=== PATIENT | male | born 1930 | race Caucasian/White ===

== ENCOUNTER 2018-02-01 18:01 | Inpatient (IN) | payer OTHER ==
[2018-02-01] MEDS: SOD CHLORIDE 0.9% 500 ML IV (18:27)
[2018-02-01 19:10] LABS: ADD MAN DIFF? NO
[2018-02-01 19:37] LABS: ANION GAP 17 (8-16); BLOOD UREA NITROGEN 72 mg/dl (7-20); CALCIUM 8.7 mg/dl (8.4-10.2); CARBON DIOXIDE 22 mmol/L (21-31); CHLORIDE 101 mmol/L (97-110); GLUCOSE 222 mg/dl (70-220); POTASSIUM 4.8 mmol/L (3.5-5.1); SODIUM 135 mmol/L (135-144)
[2018-02-01 19:42] LABS: INR 1.07; PT RATIO 1.1
[2018-02-01 19:46] LABS: TROPONIN-I 0.014 ng/ml (0.00-0.12)
[2018-02-01 20:06] LABS: BASOPHIL # 0.1 10^3/ul (0.0-0.1); BASOPHILS % 0.3 % (0.0-2.0); EOSINOPHILS # 0.1 10^3/ul (0.0-0.5); EOSINOPHILS % 0.3 % (0.0-7.0); HEMATOCRIT 28.6 % (42.0-52.0); LYMPHOCYTES # 0.8 10^3/ul (0.8-2.9); LYMPHOCYTES % 4.5 % (15.0-51.0); MEAN CORPUSCULAR HGB CONC 31.5 g/dl (32.0-37.0); MEAN CORPUSCULAR VOLUME 85.9 fl (82.0-101.0); MEAN PLATELET VOLUME 11.7 fl (7.4-10.4); MONOCYTE # 1.1 10^3/ul (0.3-0.9); MONOCYTES % 5.8 % (0.0-11.0); NEUTROPHIL # 15.7 10^3/ul (1.6-7.5); PLATELET COUNT 225 10^3/UL (140-415); RED BLOOD COUNT 3.33 10^6/ul (4.70-6.10)
[2018-02-01 20:06] LABS: WHITE BLOOD COUNT 18.3 10^3/ul (4.8-10.8)
[2018-02-01] MEDS: SOD CHLORIDE 0.9% 1,000 ML IV (20:41)
[2018-02-01 20:45] LABS: FREE T4 (FREE THYROXINE) 1.77 ng/dl (0.85-1.93)
[2018-02-01] MEDS: CEFEPIME 1GM/50 ML (PMX) 50 ML IVPB (21:02)
[2018-02-01 21:37] LABS: LACTIC ACID 2.9 mmol/L (0.5-2.0)
[2018-02-01] MEDS: VANCOMYCIN 1 GM (PMX) 250 ML IVPB (21:44)
[2018-02-01] MEDS: SODIUM CHLORIDE 0.9% 1L BAG IV* (21:45)
[2018-02-01 22:39] LABS: ADD UMIC YES; UR ASCORBIC ACID NEGATIVE (NEGATIVE); UR BILIRUBIN (Dip) NEGATIVE (NEGATIVE); UR BLOOD (Dip) NEGATIVE (NEGATIVE); UR CLARITY CLEAR (CLEAR); UR COLOR YELLOW (YELLOW); UR GLUCOSE (Dip) NEGATIVE (NEGATIVE); UR KETONES (Dip) NEGATIVE (NEGATIVE); UR LEUKOCYTE ESTERASE (Dip) TRACE Leu/ul (NEGATIVE); UR NITRITE (Dip) NEGATIVE (NEGATIVE); UR RBC 1 /HPF (0-5); UR TOTAL PROTEIN (Dip) NEGATIVE (NEGATIVE); UR UROBILINOGEN (Dip) NEGATIVE (NEGATIVE); UR WBC 1 /HPF (0-5)
[2018-02-01] MEDS ORDERED: ACETAMINOPHEN 325 MG TAB PO ×2 (23:00→23:30)
[2018-02-01] MEDS ORDERED: ONDANSETRON 4 MG INJ IV ×2 (23:00→23:30)
[2018-02-01] MEDS ORDERED: DEXTROSE 50% 50 ML SYRINGE IV ×2 (23:30)
[2018-02-01] MEDS ORDERED: morphine 2 MG INJ IV (23:30)
[2018-02-01] MEDS ORDERED: GLUCAGON 1 MG INJ IM (23:30)
[2018-02-01] MEDS ORDERED: GLUCOSE GEL 15 GRAM TUBE BUCCAL (23:30)
[2018-02-01] MEDS ORDERED: GLUCOSE GEL 15 GRAM TUBE PO ×2 (23:30)
[2018-02-01 23:31] LABS: ALANINE AMINOTRANSFERASE 39 IU/L (13-69); ALBUMIN 2.4 g/dl (3.3-4.9); ALKALINE PHOSPHATASE 70 IU/L (42-121); ASPARTATE AMINO TRANSFERASE 49 IU/L (15-46); BILIRUBIN,INDIRECT 0.2 mg/dl (0-1.1); BILIRUBIN,TOTAL 0.2 mg/dl (0.2-1.3); TOTAL PROTEIN 5.1 g/dl (6.1-8.1)
[2018-02-01 23:45] LABS: LACTIC ACID 2.9 mmol/L (0.5-2.0)
[2018-02-02] MEDS ORDERED: PIPER-TAZO 3.375 GM IV (PMX) 100 ML IVPB (01:00)
[2018-02-02] MEDS: ALBUTEROL/IPRATROPIUM (NEB) 3 ML AMP HHN ×4 (02:40→22:33)
[2018-02-02] MEDS: PIPER-TAZO 2.25 GM (PMX) 50 ML IVPB ×3 (03:37→22:25)
[2018-02-02 03:47] LABS: LACTIC ACID 1.8 mmol/L (0.5-2.0)
[2018-02-02] MEDS ORDERED: VANCOMYCIN IV PER PHARMACY XX (04:00)
[2018-02-02 04:24] LABS: RETICULOCYTE RBC 3.36
[2018-02-02 04:24] LABS: RETICULOCYTE COUNT # 0.046 X10^6 (0.020-0.110); RETICULOCYTE COUNT % 1.4 % (0.5-1.5)
[2018-02-02 06:09] LABS: ADD MAN DIFF? NO
[2018-02-02 06:20] LABS: BASOPHILS % 0.2 % (0.0-2.0); HEMATOCRIT 27.4 % (42.0-52.0); HEMOGLOBIN 8.5 g/dl (14.0-18.0); LYMPHOCYTES # 0.6 10^3/ul (0.8-2.9); LYMPHOCYTES % 3.1 % (15.0-51.0); MEAN CORPUSCULAR HEMOGLOBIN 26.9 pg (29.0-33.0); MEAN CORPUSCULAR VOLUME 86.7 fl (82.0-101.0); MEAN PLATELET VOLUME 12.1 fl (7.4-10.4); MONOCYTE # 1.3 10^3/ul (0.3-0.9); MONOCYTES % 6.4 % (0.0-11.0); NEUTROPHIL # 17.6 10^3/ul (1.6-7.5); NEUTROPHILS % 89.1 % (39.0-77.0); PLATELET COUNT 212 10^3/UL (140-415); RED BLOOD COUNT 3.16 10^6/ul (4.70-6.10); RED CELL DISTRIBUTION WIDTH 15.1 % (11.5-14.5)
[2018-02-02 06:20] LABS: WHITE BLOOD COUNT 19.7 10^3/ul (4.8-10.8)
[2018-02-02 06:48] LABS: ALANINE AMINOTRANSFERASE 51 IU/L (13-69); ALBUMIN 2.9 g/dl (3.3-4.9); ALBUMIN/GLOBULIN RATIO 1.16; ALKALINE PHOSPHATASE 94 IU/L (42-121); ANION GAP 14 (8-16); ASPARTATE AMINO TRANSFERASE 42 IU/L (15-46); BILIRUBIN,INDIRECT 0.2 mg/dl (0-1.1); BILIRUBIN,TOTAL 0.2 mg/dl (0.2-1.3); BLOOD UREA NITROGEN 80 mg/dl (7-20); CALCIUM 8.3 mg/dl (8.4-10.2); CARBON DIOXIDE 22 mmol/L (21-31); CHLORIDE 110 mmol/L (97-110); CREATININE 1.99 mg/dl (0.61-1.24); GLUCOSE 255 mg/dl (70-220); POTASSIUM 4.7 mmol/L (3.5-5.1); SODIUM 141 mmol/L (135-144); TOTAL PROTEIN 5.4 g/dl (6.1-8.1)
[2018-02-02 06:51] LABS: IRON 27 ug/dl (35-150)
[2018-02-02 07:00] LABS: % IRON SATURATION 11 % SAT (22-52); TOTAL IRON BINDING CAPACITY 249 ug/dl (241-421)
[2018-02-02] MEDS: SOD CHLORIDE 0.9% 1,000 ML IV ×5 (07:47→22:42)
[2018-02-02 08:40] LABS: FOLATE > 20.0 ng/ml (2.8-20.0)
[2018-02-02] MEDS: INSULIN ASPART [NOVOLOG] 3 ML PEN SC ×4 (08:43→22:04)
[2018-02-02] MEDS: PAROXETINE 20 MG TAB PO (09:36)
[2018-02-02] MEDS: FERROUS GLUCONATE (EC) 325 MG TAB PO ×2 (16:00→21:59)
[2018-02-02 16:36] LABS: HEMOGLOBIN A1C 6.5 % (0-5.9)
[2018-02-02] MEDS: FAMOTIDINE 20 MG TAB PO (21:59)
[2018-02-02] MEDS: ATORVASTATIN 40 MG TAB PO (21:59)
[2018-02-03] MEDS: ALBUTEROL/IPRATROPIUM (NEB) 3 ML AMP HHN ×3 (01:57→14:55)
[2018-02-03] MEDS: SOD CHLORIDE 0.9% 1,000 ML IV ×2 (02:22→06:15)
[2018-02-03] MEDS: PIPER-TAZO 2.25 GM (PMX) 50 ML IVPB ×2 (05:27→14:00)
[2018-02-03 05:50] LABS: ADD MAN DIFF? NO
[2018-02-03 05:59] LABS: ABNORMAL IP MESSAGE 1; BASOPHILS % 0.1 % (0.0-2.0); HEMATOCRIT 21.7 % (42.0-52.0); LYMPHOCYTES # 1.1 10^3/ul (0.8-2.9); LYMPHOCYTES % 4.6 % (15.0-51.0); MEAN CORPUSCULAR HGB CONC 30.4 g/dl (32.0-37.0); MEAN CORPUSCULAR VOLUME 88.9 fl (82.0-101.0); MONOCYTE # 1.7 10^3/ul (0.3-0.9); MONOCYTES % 7.1 % (0.0-11.0); NEUTROPHIL # 20.9 10^3/ul (1.6-7.5); NEUTROPHILS % 86.9 % (39.0-77.0); PLATELET COUNT 211 10^3/UL (140-415); POSITIVE DIFF @See below; RED BLOOD COUNT 2.44 10^6/ul (4.70-6.10); RED CELL DISTRIBUTION WIDTH 15.8 % (11.5-14.5)
[2018-02-03 06:12] LABS: ALANINE AMINOTRANSFERASE 36 IU/L (13-69); ALBUMIN 2.5 g/dl (3.3-4.9); ALBUMIN/GLOBULIN RATIO 1.08; ALKALINE PHOSPHATASE 65 IU/L (42-121); ANION GAP 19 (8-16); ASPARTATE AMINO TRANSFERASE 33 IU/L (15-46); BILIRUBIN,INDIRECT 0.2 mg/dl (0-1.1); BILIRUBIN,TOTAL 0.2 mg/dl (0.2-1.3); BLOOD UREA NITROGEN 102 mg/dl (7-20); CALCIUM 8.3 mg/dl (8.4-10.2); CARBON DIOXIDE 16 mmol/L (21-31); CHLORIDE 115 mmol/L (97-110); CREATININE 2.47 mg/dl (0.61-1.24); GLUCOSE 258 mg/dl (70-220); POTASSIUM 4.5 mmol/L (3.5-5.1); SODIUM 145 mmol/L (135-144); TOTAL PROTEIN 4.8 g/dl (6.1-8.1)
[2018-02-03 06:35] LABS: HEMOGLOBIN 6.6 g/dl (14.0-18.0)
[2018-02-03 07:17] LABS: MAGNESIUM 1.6 mg/dl (1.7-2.5)
[2018-02-03 07:17] LABS: PHOSPHORUS 4.9 mg/dl (2.5-4.9)
[2018-02-03] MEDS: FERROUS GLUCONATE (EC) 325 MG TAB PO (08:33)
[2018-02-03] MEDS: PAROXETINE 20 MG TAB PO (08:33)
[2018-02-03] MEDS: INSULIN ASPART [NOVOLOG] 3 ML PEN SC ×3 (08:55→18:12)
[2018-02-03] MEDS ORDERED: VANCOMYCIN 1.25 GM in SOD CHLORIDE 0.9% 250 ML IVPB (10:00)
[2018-02-03] MEDS: PANTOPRAZOLE 40 MG INJ IV ×2 (10:00→18:34)
[2018-02-03 10:34] LABS: IMMEDIATE SPIN CROSSMATCH 1 2
[2018-02-03 15:58] LABS: ADD MAN DIFF? NO
[2018-02-03 16:01] LABS: ABNORMAL IP MESSAGE 1; BASOPHILS % 0.2 % (0.0-2.0); EOSINOPHILS % 0.1 % (0.0-7.0); HEMATOCRIT 24.4 % (42.0-52.0); HEMOGLOBIN 7.5 g/dl (14.0-18.0); LYMPHOCYTES # 3.8 10^3/ul (0.8-2.9); LYMPHOCYTES % 15.5 % (15.0-51.0); MEAN CORPUSCULAR HEMOGLOBIN 28.2 pg (29.0-33.0); MEAN CORPUSCULAR HGB CONC 30.7 g/dl (32.0-37.0); MEAN CORPUSCULAR VOLUME 91.7 fl (82.0-101.0); MEAN PLATELET VOLUME 11.9 fl (7.4-10.4); MONOCYTE # 1.8 10^3/ul (0.3-0.9); MONOCYTES % 7.3 % (0.0-11.0); NEUTROPHIL # 18.1 10^3/ul (1.6-7.5); NEUTROPHILS % 73.4 % (39.0-77.0); NUCLEATED RED BLOOD CELLS # 0.1 10^3/ul (0.0-0.0); NUCLEATED RED BLOOD CELLS% 0.2 /100WBC (0.0-0.0); PLATELET COUNT 188 10^3/UL (140-415); POSITIVE DIFF @See below; RED BLOOD COUNT 2.66 10^6/ul (4.70-6.10); RED CELL DISTRIBUTION WIDTH 15.1 % (11.5-14.5)
[2018-02-03 16:01] LABS: WHITE BLOOD COUNT 24.6 10^3/ul (4.8-10.8)
[2018-02-03 16:33] LABS: CREATINE KINASE 52 IU/L (23-200)
[2018-02-03 16:34] LABS: ANION GAP 24 (8-16); BLOOD UREA NITROGEN 102 mg/dl (7-20); CALCIUM 8.4 mg/dl (8.4-10.2); CARBON DIOXIDE 13 mmol/L (21-31); CHLORIDE 121 mmol/L (97-110); CREATININE 2.64 mg/dl (0.61-1.24); GLUCOSE 240 mg/dl (70-220); SODIUM 153 mmol/L (135-144)
[2018-02-03 16:49] LABS: CK INDEX 8.2
[2018-02-03 16:50] LABS: CK-MB 4.26 ng/ml (0.0-2.4)
[2018-02-03] MEDS ORDERED: SODIUM BICARBONATE (IV ADD) 100 MEQ in DEXTROSE 5% 1,000 ML IV (18:00)
[2018-02-03] MEDS ORDERED: INSULIN GLARGINE [LANtus] 3 ML PEN SC (20:00)
== END 2018-02-03 19:40 | disposition expired | DRG 872 ==
LOC: E/R 18:01 → MS2 02-02 13:53
PROVIDERS: Pediatrics
DX: A41.9 Sepsis, unspecified organism (principal); N17.9 Acute kidney failure, unspecified; E87.2 Acidosis; K92.0 Hematemesis; E11.22 Type 2 diabetes mellitus with diabetic chronic kidney disease; E86.0 Dehydration; J44.9 Chronic obstructive pulmonary disease, unspecified; E11.40 Type 2 diabetes mellitus with diabetic neuropathy, unspecified; R65.20 Severe sepsis without septic shock; I12.9 Hypertensive chronic kidney disease with stage 1 through stage 4 chronic kidney disease, or unspecified chronic kidney disease; N18.9 Chronic kidney disease, unspecified; N40.0 Benign prostatic hyperplasia without lower urinary tract symptoms; I95.1 Orthostatic hypotension; E78.5 Hyperlipidemia, unspecified; F32.9 Major depressive disorder, single episode, unspecified; E03.9 Hypothyroidism, unspecified; R62.7 Adult failure to thrive; Z79.4 Long term (current) use of insulin; Z91.81 History of falling
CPT/HCPCS: 36415; 36430; 70450; 71045; 72146; 72148; 74176; 80048; 80053; 80076; 81001; 82550; 82553; 82607; 82728; 82746; 82962; 83036; 83540; 83605; 83735; 84100; 84439; 84443; 84484; 85025; 85045; 85610; 86850; 86900; 86901; 86920; 87040; 87086; 93005; 93306; 94640; 94660; 94664; 96361; 96365; 96366; 96372; 96375; 99291-25